=== PATIENT | male | born 1940 | race Caucasian/White ===

== ENCOUNTER 2017-09-26 00:54 | Observation (INO) ==
[2017-09-26] MEDS ORDERED: Naloxone 0.4 MG/ML INJ IVP PRN (05:05)
[2017-09-26] MEDS ORDERED: *HR* LORazepam 2 MG/ML VIAL IVP PRN ×3 (05:12)
--- NOTE | 2017-09-26 05:18 | Internal Med History&Physical ---
<Chalo Lee - Last Filed: 09/26/17 05:34> Date of Encounter: 09/26/17 Time of Encounter: 04:30 Assessment and Plan (1) Syncope Current visit: Yes Status: Acute Syncope, likely related to alcohol consumption vs. Orthostatics vs. 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 There are no focal neurological deficits with the exception of left lower extremity weakness Probability of new infarct in the brain is low, however we will check an MRI We will check orthostatic vital signs, a TTE, continuous cardiac monitoring, NIHSS Protocol We will manage HTN, ASCVD risk factors (currently 38.8% 10yr risk) PT, OT, ST eval Qualifiers: Syncope type: unspecified Qualified Code(s): R55 - Syncope and collapse (2) Hypertension Current visit: Yes Status: Acute Hypertension by history, 152/84 on presentation Patient does mention lightheadedness transitioning from sitting to standing We will control BP as a possible contributor to neurological symptoms Continue home meds, PRN hydralazine for SBP >160 Qualifiers: Hypertension type: essential hypertension Qualified Code(s): I10 - Essential (primary) hypertension (3) Alcohol dependence Current visit: Yes Status: Acute ETOH Dependence, not in withdrawal Patient states he has 3-4 drinks of whiskey per day We will place the patient on CIWA protocol We will give the patient banana bag, supplement Thiamine/Folic Acid Qualifiers: Substance use status: uncomplicated Qualified Code(s): F10.20 - Alcohol dependence, uncomplicated (4) CKD (chronic kidney disease) stage 3, GFR 30-59 ml/min Current visit: Yes Status: Acute CKD stage three, Serum Cr 1.68 eGFR 39 Evidence of prior CKD from old labs We will hydrate, avoid nephrotoxic agents as possible (5) Dysphagia Current visit: Yes Status: Acute Patient complains of dysphagia seemingly in the esophageal phase We will get a speech therapy consult for swallow eval Patient may require outpatient GI workup for dysphagia Qualifiers: Dysphagia type: esophageal phase Qualified Code(s): R13.10 - Dysphagia, unspecified (6) DVT prophylaxis Current visit: Yes Status: Acute SQ Heparin Internal Medicine - H&P: HPI Chief complaint: Passed out Admitted From: Hospital to Hospital Transfer Plans for Post Hospital Care: Home History of present illness: Mr. Garza is a 76 year old male with history of alcohol dependence, tobacco abuse, high blood pressure, prostate cancer with treatment approximately one year ago who presented to the ED at [facility] due to episode of syncope. Apparently the patient was sitting at his dinner table at approximately 8 PM last night when his walked out of the room. Shortly after that she noticed a thump sound and went back in to find that her had slumped over with his head on the table. She said that at that time she tried to wake him but it took approximately 10-15 minutes to get him to open his eyes and try to communicate. She says initially he was unable to communicate although it appeared that he was trying, however after a couple minutes he was able to talk to her again. She does not seem to remember much of this episode described what he was feeling at that time. He does mention that just prior to the episode he did experience some right-sided arm pain which was abnormal for him. The patient's does mention that he does not seem like she has been so for the past 1 week. She says that he has been very tired all the time, and his appetite has been increasingly poorer. She said she cannot exactly describe what is different about him, but just that he has changed. The patient denies any chest pains, shortness of breath, nausea, vomiting, changes in vision, headache or any focal weakness or deficit. He denies any event like this previously. According to the patient and his , the patient does have some issues with alcohol abuse, saying that he has 3-4 drinks of whiskey per day and has for as long as he can remember. Past Med Surg Social Fam HX - Past Medical History Medical history: diabetes, hyperlipidemia, hypertension Psychiatric history: anxiety, depression - Social History Smoking Status: Former smoker Smokeless Tobacco Status: No Alcohol use: recent Drug use: none - Family History Mother Living Status: Hx Family Cardiac Disorders: No Hx Family Respiratory Disorders: No Hx Family Cancer: Yes (liver) Hx Family GI Disorders: No Hx Family Genitourinary Disorders: No Hx Family Endocrine Disorder: No Hx Family Musculoskeletal Disorders: No Hx Family Neuromuscular Disorders: No Hx Family Neurologic Disorders: No Hx Family HEENT Disorders: No Hx Family Autoimmune Disorders: No Hx Family Reproductive Disorders: No Hx Family Psychosocial Disorders: No Hx Family Medical Disorders: No Internal Medicine - H&P: Meds Fenofibrate 134 mg PO DAILY 08/29/15 [History] Fish Oil + Vitamin D-3 Softgel 1,000 mg PO QID 08/29/15 [History] Folic Acid 400 mcg PO DAILY 08/29/15 [History] LORazepam 1 mg PO HS PRN 08/29/15 [History] Lyrica 150 mg PO Q8HR 08/29/15 [History] Metoprolol 100 mg PO BID 08/29/15 [History] Nexium 24Hr 40 mg PO DAILY 08/29/15 [History] Niacin [Niaspan] 1,000 mg PO HS 08/29/15 [History] Phendimetrazine Tartrate 35 mg PO BID 08/29/15 [History] Sildenafil Citrate [Viagra] 100 mg PO DAILY #10 tablet 08/29/15 [Rx] Tamsulosin [Flomax] 0.4 mg PO DAILY #30 cap.er.24h 08/29/15 [Rx] 3 Allergy/AdvReac Type Severity Reaction Status Date / Time No Known Allergies Allergy Verified 07/19/15 14:29 All Systems PM: A 10-system review of systems was performed and is negative for pertinent findings except as documented above in the HPI. Review of systems: Constitutional: Denies fevers, chills, generalized fatigue. Admits to 25lb weight loss in several months which was intentional Head/Neck: Denies YING, neck stiffness EENT: Denies vision changes/blurriness, rhinorrhea, congestion, sore throat CVS: Denies chest pain, palpitations, ALFONSO, orthopnea, edema, PND Pulm: Denies SOB, cough, sputum, hemoptysis, wheezing GI: Denies abdominal pain, nausea, vomiting, diarrhea, constipation, melena, hematemasis. Admits to Dysphagia and food regurgitation recently. : Denies dysuria, increased frequency, urgency, hematuria Heme: Denies ease of bleeding or bruising MSK: Denies joint pain, limited ROM Skin: Denies rashes, ulcers, color changes Neuro: Denies YING, paresthesias, focal deficits, ataxia - Constitutional Vitals: Temp Pulse Resp BP Pulse Ox 98.3 F 85 16 152/84 93 09/26/17 04:04 09/26/17 04:04 09/26/17 04:04 09/26/17 04:04 09/26/17 04:04 Exam: Gen.: Vitals noted. No acute distress. AAOx3 HEENT: PERRL/EOMI, oropharynx clear, Normocephalic, atraumatic Neck: Supple. No adenopathy. Cardiac: RRR, no murmur, +S1/S2 Pulmonary: CTA bilaterally, no wheezes, rales or rhonchi, equal chest expansion Abdomen: soft, nontender, BS noted, no guarding Back: Nontender throughout. MSK: ROM intact, no joint swelling noted Extremities: no BLE edema, nontender calf, no cyanosis or clubbing Neuro: detailed neuro exam documented below Psych: Appropriate mood and behavior - Expanded Neurological Exam Neurological exam expanded: Absent: expressive aphasia Patient oriented to: Present: person, place, time Speech: Present: fluid speech. Absent: garbled, slurred, stutter Cranial Nerves: EOM's intact PM: Normal, tongue deviation PM: Normal Ataxia: Absent: yes Cerebellar function: finger to nose: Normal, heel to bustamante: Normal Upper motor neuron: Babinski sign: Normal, Arturo neglect: Normal, pronator drift : Normal, sensory extinction: Normal Sensory exam: lower extremity light touch: Normal, upper extremity light touch: Normal Neuro motor strength exam: LUE: 5, RUE: 5, LLE: 4, RLE: 5 Coma Scale Eye Opening: Spontaneous Coma Scale Motor Response: Obeys Commands Coma Scale Verbal Response: Oriented Coma Scale Total: 15 <ColeGustavojosh Choi - Last Filed: 09/26/17 06:18> Date of Encounter: 09/26/17 Internal Medicine - H&P: HPI History of present illness: Mr. Garza is a 76 year old male All Systems PM: A 10-system review of systems was performed and is negative for pertinent findings except as documented above in the HPI. - Constitutional Vitals: Temp Pulse Resp BP Pulse Ox 98.3 F 85 16 152/84 93 09/26/17 04:04 09/26/17 04:04 09/26/17 04:04 09/26/17 04:04 09/26/17 04:04 Internal Med - H&P Results - Labs CBC & Chem 7: 09/26/17 05:30 Labs: Short CBC 09/26/17 Range/Units 05:30 WBC 9.5 (4.3-11.1) K/mcL Hgb 15.7 (12.9-16.9) g/dL Hct 45.8 (37.5-50.1) % Plt Count 222 (140-400) K/mcL Neutrophils # 7.0 (1.6-8.9) K/mcL - Attending Attestation I examined this patient and my medical decision-making was reviewed with the Resident Physician. I agree with the documented findings, disposition and treatment plan as described except to the extent set forth below. Transfer from [facility] for syncope eval called EMS as patient had passed out while sitting in the chair drinking whiskey. He was out for 10-15 mins before regaining consciousness. He has a long standing hx of alcoholism and dranks about 4 glass of whiskey daily for many years now. didn't think he was drunk. Blood alcohol level not elevated EKG reviewed by self with rate 130, PVC, sinus tachy CT head w/o contrast with age indeterminate right thalamic lacunar infarct ROS noted dizziness/off balance/light headed WBC 16 Hb 17.5 Plt 280 K Cr 1.68 Na 137 Mg 1.2 K 4.1 General - AAO x 3 Psych - Appropriate affect/speech. No agitation Eyes - ISELA. Eye lids intact. No scleral icterus Neuro - No gross peripheral or central neuro deficits on inspection Heart - Sinus. RRR. S1 and S2 present. No added HS/murmurs appreciated. No elevated JVD appreciated. Lung - Adequate air entry b/l, No crackles/wheezes appreciated GI - Soft, non-tender. No hepatosplenomegaly/ascites. BS+ - No CVA/suprapubic tenderness or palpable bladder distension Skin - Intact. No rash/petechiae/ecchymosis. Warm extremities ROS 14 point review of systems reviewed as best as possible given presentation. Pertinent positive or negative as per HPI or otherwise reviewed as negative A/P Passed out, syncope Hx of dizziness - orthostats, tele, TTE given hx of alcoholism - MRI brain to r/o posterior CVA - PT/OT Alcoholism - ciwa CKD HTN Hyperglyceridemia
[2017-09-26] MEDS: *HR* Heparin 5,000 UNIT/ML VIAL SQ SCH ×2 (05:33→18:00)
[2017-09-26] MEDS ORDERED: hydrALAZINE 10 MG TABLET PO PRN (05:34)
[2017-09-26 05:49] LABS: Basophils # 0.1 K/mcL (0.0-0.2); Basophils % 0.5 %; Eosinophils # 0.2 K/mcL (0.0-0.6); Eosinophils % 2.3 %; Hematocrit 45.8 % (37.5-50.1); Hemoglobin 15.7 g/dL (12.9-16.9); Immature Granulocytes % 0.8 % (0-4); Lymphocytes # 1.3 K/mcL (0.6-4.6); Lymphocytes % 13.4 %; Mean Corpuscular HGB Conc 34.3 g/dL (31.6-35.5); Mean Corpuscular Hemoglobin 33.9 pg (28.0-33.3); Mean Corpuscular Volume 98.9 fL (83.0-100.0); Mean Platelet Volume 10.4 fL (9.4-12.4); Monocytes # 0.9 K/mcL (0.0-1.3); Monocytes % 9.1 %; Platelet Count 222 K/mcL (140-400); Red Blood Count 4.63 M/mcL (4.19-5.50); Red Cell Distribution Width 13.5 % (11.5-14.5); Segmented Neutrophils % 73.9 %
[2017-09-26 06:13] LABS: Alanine Aminotransferase 13 Units/L (7-52); Albumin 3.4 g/dL (3.5-5.7); Albumin/Globulin Ratio 1.2 (1.1-2.2); Alkaline Phosphatase 42 Units/L (34-104); Aspartate Amino Transferase 24 Units/L (13-39); BUN/Creatinine Ratio 14 (6-26); Bilirubin,Direct 0.2 mg/dL (0.0-0.2); Bilirubin,Indirect 0.5 mg/dL (0.0-1.2); Bilirubin,Total 0.7 mg/dL (0.3-1.0); Blood Urea Nitrogen 18 mg/dL (8-23); Calcium 9.5 mg/dL (8.6-10.3); Carbon Dioxide 18 mEq/L (23-29); Chloride 105 mEq/L (98-107); Globulin 2.8 g/dL (2.4-3.5); Glucose 101 mg/dL (70-105); Osmolality,Calculated 278 (280-300); Potassium 4.4 mEq/L (3.5-5.1); Sodium 133 mEq/L (136-145); Total Protein 6.2 g/dL (6.4-8.9); eGFR For African Americans > 60 (> 60); eGFR For Non-African Americans 53 (> 60)
[2017-09-26 06:14] LABS: Cholesterol 178 mg/dL (< 200)
[2017-09-26] MEDS ORDERED: Magnesium Sulfate 4 GM in D5% in Water 100 ML IVPB ONE (06:18)
[2017-09-26 06:32] LABS: Chol/HDL Ratio 7.1 (0-4.9); HDL Cholesterol 25 mg/dL (40-59); LDL Cholesterol,Calculated 114 mg/dL (0-99); Triglycerides 193 mg/dL (< 150)
[2017-09-26] MEDS: Pregabalin 75 MG CAPSULE PO SCH ×3 (08:39→23:55)
[2017-09-26] MEDS: Aspirin 81 MG TAB.CHEW PO SCH (08:45)
[2017-09-26] MEDS: Metoprolol 100 MG TABLET PO SCH ×2 (08:46→20:37)
[2017-09-26] MEDS: Fenofibrate 54 MG TABLET PO SCH (08:46)
[2017-09-26] MEDS: Folic Acid 1 MG TABLET PO SCH (08:46)
[2017-09-26] MEDS ORDERED: Pantoprazole 40 MG VIAL IVP SCH (09:00)
--- NOTE | 2017-09-26 13:22 | Internal Med Progress Note ---
<Francis Bauman - Last Filed: 09/26/17 13:20> Date of Encounter: 09/26/17 Time of Encounter: 13:20 - Assessment and plan (1) Syncope Current Visit: Yes Status: Acute Assessment and plan: Mr. Garza had an episode where he had right shoulder pain followed by blacking out at home. Found by his who says he was slouched over in his chair for roughly 10 minutes no signs of jerking and shaking loss of bowel or bladder control. He states this is the first time he has never had this prior. Upon awakening he had some initial difficulty with speech that resolved on its own. - MRI of the brain demonstrates an old lacunar with right and left thalamus, mild chronic small vessel ischemic disease with associated mild cerebral atrophy. - Patient has been stable on threat monitoring analyst. - Echocardiogram ordered results pending - EKG no acute findings. Patient had syncopal episode at home, potential for cardiac involvement as the patient was at rest sitting in his chair and blacked out. He does have occasional episodes of lightheadedness when he stands which may be due to orthostatic syncope but this episode he was at rest and denies trying to ambulate from his chair. - He is a chronic alcoholic and does not follow up with his PCP regularly, history of cancer with last therapy treatment 2 years ago. HTN, ASCVD risk factors (currently 38.8% 10yr risk) Plan: - Awaiting read from echocardiogram - Orthostatic blood pressures - Continue cardiac monitoring may need 30 day heart monitor - MRI of the brain without acute findings Qualifiers: Syncope type: unspecified Qualified Code(s): R55 - Syncope and collapse (2) Alcohol dependence Current Visit: Yes Status: Acute Assessment and plan: Mr. Garza has a long chronic history of alcohol abuse potential for cirrhosis. Platelet count 222, AST and ALT are in normal range. -History of withdrawal symptoms requiring hospitalization one year ago - Drinks multiple drinks of hard alcohol per day with last drink of alcohol yesterday prior to admission Liver ultrasound from 2016 demonstrates marked hepatic steatosis superimposed coarsened hepatic echotexture with findings for fibrotic change. Plan: - [facility] protocol - Continue to monitor symptoms per protocol - Continue thiamine folic acid replacement Qualifiers: Substance use status: uncomplicated Qualified Code(s): F10.20 - Alcohol dependence, uncomplicated (3) CKD (chronic kidney disease) stage 3, GFR 30-59 ml/min Current Visit: Yes Status: Acute Assessment and plan: History of chronic kidney disease review of his current labs demonstrates appropriate creatinine and GFR: Chronic kidney disease stage III - Avoid nephrotoxic medications and renally dose antibiotics (4) DVT prophylaxis Current Visit: Yes Status: Acute Assessment and plan: Subcutaneous heparin - Subjective Interval history: Mr. Garza has been seen and evaluated patient bedside. He is alert awake [place] appropriate no concerns. He states that he feels almost back to his normal self distal little tired otherwise he is starving. He has no acute concerns, denies any weakness numbness tingling travel with vision or speech. His was at bedside states that he has just seemed a little bit off over the last week which concerned him but when she found him slouched over in his chair that was very concerning and he was out for roughly 10 minutes. He denies any heart issues, denies any heart attacks MIs stents arrhythmias or palpitations. He denies any lightheaded episodes resulting in passing out prior. He does mention that occasionally when he gets up from his chair he becomes lightheaded but that usually resolves on its own. He does mention that for a while he has had progressive dysphagia where he has difficulty swallowing foods completely feeling like they are stuck and then having to drink water to try to get that to pass. He states that occasionally he will throw up water that he drinks to try to get the food down. - Constitutional Vitals: Temp Pulse Resp BP Pulse Ox 98.2 F 85 16 113/83 92 09/26/17 07:14 09/26/17 07:14 09/26/17 07:14 09/26/17 07:14 09/26/17 08:47 - Head Head exam: Present: atraumatic, normocephalic - Eye Eye exam: Present: PERRL, conjuntiva pink, sclera anicteric Pupils: Present: PERRL - Neck Neck exam general surgery: Present: supple, trachea midline. Absent: lymphadenopathy - Respiratory Respiratory exam: Present: CTAB. Absent: accessory muscle use, rales, rhonchi, wheezes - Cardiovascular Cardiovascular exam: Present: RRR, +S1, +S2. Absent: diastolic murmur, gallop, rubs, systolic murmur - GI/Abdominal GI/Abdominal exam: Present: hepatomegaly, normal bowel sounds, soft, no peritoneal signs. Absent: distended, tenderness - Extremities Exam Extremities exam: Present: warm, radial pulses palpable and symmetrical. Absent : calf tenderness, cyanotic, pedal edema - Neurological Exam Neurological exam: Present: alert, CN II-XII intact, oriented X3, no focal deficits. Absent: pronater drift, facial droop, speech deficit - Skin Skin exam: Present: dry, intact Internal Medicine: Result - Labs CBC & Chem 7: 09/26/17 05:30 09/26/17 05:30 Labs: Short CBC 09/26/17 Range/Units 05:30 WBC 9.5 (4.3-11.1) K/mcL Hgb 15.7 (12.9-16.9) g/dL Hct 45.8 (37.5-50.1) % Plt Count 222 (140-400) K/mcL Neutrophils # 7.0 (1.6-8.9) K/mcL BMP 09/26/17 05:30 Sodium 133 L Potassium 4.4 Chloride 105 Carbon Dioxide 18 L BUN 18 Creatinine 1.31 H Glucose 101 Calcium 9.5 Liver Function 09/26/17 Range/Units 05:30 Total Bilirubin 0.7 (0.3-1.0) mg/dL Direct Bilirubin 0.2 (0.0-0.2) mg/dL AST 24 (13-39) Units/L ALT 13 (7-52) Units/L Alkaline Phosphatase 42 (34-104) Units/L Albumin 3.4 L (3.5-5.7) g/dL - Impressions Impressions Brain MRI 09/26/17 05:08 IMPRESSION: No evidence of acute ischemia Old lacune within the right and left thalamus Mild chronic small vessel ischemic disease with associated mild cerebral atrophy D/ / Guille Carranza MD / Guille Carranza MD Interpreting Provider: Guille Carranza MD Consult Discharge Plan - Plan Referrals: Alexis Hsu DO [Primary Care Provider] - <Matt Packer - Last Filed: 09/26/17 18:49> Date of Encounter: 09/26/17 - Constitutional Vitals: Temp Pulse Resp BP Pulse Ox 97.8 F 93 16 143/86 95 09/26/17 15:43 09/26/17 15:43 09/26/17 15:43 09/26/17 15:46 09/26/17 15:43 Internal Medicine: Result - Labs CBC & Chem 7: 09/26/17 05:30 09/26/17 05:30 Labs: Short CBC 09/26/17 Range/Units 05:30 WBC 9.5 (4.3-11.1) K/mcL Hgb 15.7 (12.9-16.9) g/dL Hct 45.8 (37.5-50.1) % Plt Count 222 (140-400) K/mcL Neutrophils # 7.0 (1.6-8.9) K/mcL BMP 09/26/17 05:30 Sodium 133 L Potassium 4.4 Chloride 105 Carbon Dioxide 18 L BUN 18 Creatinine 1.31 H Glucose 101 Calcium 9.5 Liver Function 09/26/17 Range/Units 05:30 Total Bilirubin 0.7 (0.3-1.0) mg/dL Direct Bilirubin 0.2 (0.0-0.2) mg/dL AST 24 (13-39) Units/L ALT 13 (7-52) Units/L Alkaline Phosphatase 42 (34-104) Units/L Albumin 3.4 L (3.5-5.7) g/dL - Impressions Impressions Brain MRI 09/26/17 05:08 IMPRESSION: No evidence of acute ischemia. Old lacune within the right and left thalamus. Mild chronic small vessel ischemic disease with associated mild cerebral atrophy. D/ : / 09/26/2017 13:23:53 Guille Carranza MD / [email or web address] Interpreting Provider: Guille Carranza MD - Attending Attestation I examined this patient and my medical decision-making was reviewed with the Resident Physician on 09/26/17. I agree with the documented findings, disposition and treatment plan as described except to the extent set forth below. Mr Garza was admitted earlier today for syncopal episode Agree with assessment and plan as above Echo pending.
[2017-09-26] MEDS ORDERED: Thiamine (B-1) 100 MG, Folic Acid 1 MG, MVI, adult with vitamin K 10 ML in 0.9 % Sodi... IVPB SCH (18:00)
[2017-09-26] MEDS: Sucralfate 1 GM TABLET PO SCH ×2 (18:00→21:25)
[2017-09-27 05:34] LABS: Basophils % 0.6 %; Eosinophils # 0.2 K/mcL (0.0-0.6); Eosinophils % 3.1 %; Hematocrit 43.4 % (37.5-50.1); Hemoglobin 14.5 g/dL (12.9-16.9); Immature Granulocytes % 0.7 % (0-4); Lymphocytes # 1.1 K/mcL (0.6-4.6); Lymphocytes % 15.5 %; Mean Corpuscular HGB Conc 33.4 g/dL (31.6-35.5); Mean Corpuscular Hemoglobin 33.6 pg (28.0-33.3); Mean Corpuscular Volume 100.5 fL (83.0-100.0); Mean Platelet Volume 10.7 fL (9.4-12.4); Monocytes # 0.7 K/mcL (0.0-1.3); Monocytes % 10.4 %; Neutrophils # 4.9 K/mcL (1.6-8.9); Platelet Count 200 K/mcL (140-400); Red Blood Count 4.32 M/mcL (4.19-5.50); Red Cell Distribution Width 13.5 % (11.5-14.5); Segmented Neutrophils % 69.7 %
[2017-09-27] MEDS: *HR* Heparin 5,000 UNIT/ML VIAL SQ SCH (05:51)
[2017-09-27 05:55] LABS: Alanine Aminotransferase 14 Units/L (7-52); Albumin 3.3 g/dL (3.5-5.7); Albumin/Globulin Ratio 1.3 (1.1-2.2); Alkaline Phosphatase 42 Units/L (34-104); Aspartate Amino Transferase 14 Units/L (13-39); BUN/Creatinine Ratio 12 (6-26); Bilirubin,Total 0.5 mg/dL (0.3-1.0); Blood Urea Nitrogen 15 mg/dL (8-23); Calcium 9.1 mg/dL (8.6-10.3); Carbon Dioxide 25 mEq/L (23-29); Chloride 105 mEq/L (98-107); Globulin 2.5 g/dL (2.4-3.5); Glucose 105 mg/dL (70-105); Osmolality,Calculated 281 (280-300); Potassium 3.8 mEq/L (3.5-5.1); Sodium 135 mEq/L (136-145); Total Protein 5.8 g/dL (6.4-8.9); eGFR For African Americans > 60 (> 60); eGFR For Non-African Americans 56 (> 60)
[2017-09-27 07:26] VITALS: BP 121/82
[2017-09-27] MEDS: Sucralfate 1 GM TABLET PO SCH (08:00)
[2017-09-27] MEDS: Aspirin 81 MG TAB.CHEW PO SCH (08:00)
[2017-09-27] MEDS: Folic Acid 1 MG TABLET PO SCH (08:00)
[2017-09-27] MEDS: Fenofibrate 54 MG TABLET PO SCH (08:00)
[2017-09-27] MEDS: Metoprolol 100 MG TABLET PO SCH (08:00)
[2017-09-27] MEDS: Pregabalin 75 MG CAPSULE PO SCH (08:00)
--- NOTE | 2017-09-27 08:34 | Discharge Summary ---
<Francis Bauman Aaron - Last Filed: 09/27/17 10:12> Date of Encounter: 09/27/17 Time of Encounter: 08:34 - Discharge Diagnosis (1) Syncope Priority: Primary Status: Acute Qualifiers: Syncope type: unspecified Qualified Code(s): R55 - Syncope and collapse (2) Alcohol dependence Priority: Primary Status: Acute Qualifiers: Substance use status: uncomplicated Qualified Code(s): F10.20 - Alcohol dependence, uncomplicated (3) CKD (chronic kidney disease) stage 3, GFR 30-59 ml/min Priority: Secondary Status: Acute (4) DVT prophylaxis Priority: Secondary Status: Acute - Discharge Medications Prescriptions: Omeprazole [PriLOSEC] 40 mg PO DAILY@0630 30 Days #60 capsule. Sucralfate [Carafate] 1 gm PO QIDAC 30 Days #120 tablet Home Medications: Fenofibrate 134 mg PO DAILY 08/29/15 [History] Fish Oil + Vitamin D-3 Softgel 1,000 mg PO QID 08/29/15 [History] Folic Acid 400 mcg PO DAILY 08/29/15 [History] LORazepam 1 mg PO HS PRN 08/29/15 [History] Lyrica 150 mg PO Q8HR 08/29/15 [History] Metoprolol 100 mg PO BID 08/29/15 [History] Nexium 24Hr 40 mg PO DAILY 08/29/15 [History] Niacin [Niaspan] 1,000 mg PO HS 08/29/15 [History] Phendimetrazine Tartrate 35 mg PO BID 08/29/15 [History] Sildenafil Citrate [Viagra] 100 mg PO DAILY #10 tablet 08/29/15 [Rx] Tamsulosin [Flomax] 0.4 mg PO DAILY #30 cap.er.24h 08/29/15 [Rx] Omeprazole [PriLOSEC] 40 mg PO DAILY@0630 30 Days #60 capsule. 09/27/17 [Rx] Sucralfate [Carafate] 1 gm PO QIDAC 30 Days #120 tablet 09/27/17 [Rx] Allergies/Adverse Reactions: 3 Allergy/AdvReac Type Severity Reaction Status Date / Time No Known Allergies Allergy Verified 07/19/15 14:29 Procedures/tests Complete & Pending: Procedures Performed prior 72 hours Category Date Time Status MR head/brain wo con [MR] Routine MRI 09/26/17 05:08 Completed EV echocardiogram Routine Y 09/26/17 05:09 Completed Date of admission: 09/26/17 02:49 Primary care physician: Alexis Hsu Consults: 09/26/17 05:07 Consult to Occupational Therapy [CONS] Routine Comment: Evaluate, develop and implement POC Reason for Consult: syncope, falls Consult to Physical Therapy [CONS] Routine Comment: Evaluate, develop and implement POC Reason for Consult: syncope, falls Consult to Speech Therapy [CONS] Routine Comment: Evaluate, develop and implement POC Reason for Consult: dysphagia Call Completed: No Discharging clinician: Francis Bauman Anticipated date of discharge: 09/27/17 - Patient Status Disposition: Home, Self-Care Condition: Good Functional capacity at discharge: independent ambulation Overall status at discharge: patient is progressing back to baseline - Discharge Instructions Instructions: Syncope (DC) Follow Up With: Alexis Hsu DO [Primary Care Provider] - Krishna Boudreaux MD [Partnered Physician] - (Appointment web requested. Office will contact patient at home to schedule appointment. ) Additional Instructions: Follow up with Gastroenterology Follow up with your PCP Take medications as prescribed Attend AA for alcohol abuse If you have recurrence of dizziness or near syncope episodes return to the emergency department for further evaluation - Diet and Activity Activity: increase activity as tolerated Diet: advance to your usual diet Interval History: Mr. Garza 77yo Male with significant PMH of EtOH abuse, cirrhosis, CHF and prostate cancer admitted with syncope at home. He was admitted to the general medical floor and placed on Telemetry. 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 Orthostatic BP were negative and he did not have any cardiac events or arrhythmias on Telemetry. He was placed on CIWA protocol inpatient without needs for intervention. During his inpatient stay he did complain of prolonged dysphagia at home that occasionally resulted in vomiting. He was started on PPI and carafate inpatient with some improvement in his symptoms. He was highly encouraged to follow up [facility] after discharge. He agreed with this plan. It is suspected alcohol may have contributed to his symptoms prior to admission. He remained stable throughout his inpatient stay. on 09/27/2017 Echocardiogram was reviewed without abnormal findings and EF 60-65%. Patient seen and evaluated and deemed stable for discharge home and close follow up with his PCP and Gastroenterology. Hospital course: Mr. Garza is a 77 year old male - Time Spent with Patient Total time spent providing and/or coordinating discharge services: - Constitutional Vitals: Temp Pulse Resp BP Pulse Ox 97.6 F 63 16 121/82 97 09/27/17 07:25 09/27/17 07:25 09/27/17 07:25 09/27/17 07:25 09/27/17 08:06 - Head Head exam: Present: atraumatic, normocephalic - Eye Eye exam: Present: PERRL, conjuntiva pink, sclera anicteric Pupils: Present: PERRL - Neck Neck exam general surgery: Present: supple, trachea midline. Absent: lymphadenopathy - Respiratory Respiratory exam: Present: CTAB. Absent: accessory muscle use, rales, rhonchi, wheezes - Cardiovascular Cardiovascular exam: Present: RRR, +S1, +S2. Absent: diastolic murmur, gallop, rubs, systolic murmur - GI/Abdominal GI/Abdominal exam: Present: normal bowel sounds, soft, no peritoneal signs. Absent: distended, tenderness - Extremities Exam Extremities exam: Present: warm, radial pulses palpable and symmetrical. Absent : calf tenderness, cyanotic, pedal edema - Neurological Exam Neurological exam: Present: CN II-XII intact, oriented X3, no focal deficits. Absent: pronater drift, facial droop, speech deficit - Skin Skin exam: Present: dry, intact <Matt Packer - Last Filed: 09/27/17 17:26> Date of Encounter: 09/27/17 - Discharge Diagnosis (1) Alcohol dependence Status: Chronic Qualifiers: Substance use status: uncomplicated Qualified Code(s): F10.20 - Alcohol dependence, uncomplicated (2) Syncope Status: Resolved Qualifiers: Syncope type: unspecified Qualified Code(s): R55 - Syncope and collapse (3) CKD (chronic kidney disease) stage 3, GFR 30-59 ml/min Status: Chronic (4) Dysphagia Priority: Secondary Status: Chronic Comments: To have outpatient GI follow up Qualifiers: Dysphagia type: esophageal phase Qualified Code(s): R13.10 - Dysphagia, unspecified (5) Hypertension Priority: Secondary Status: Chronic Qualifiers: Hypertension type: essential hypertension Qualified Code(s): I10 - Essential (primary) hypertension (6) Adenocarcinoma of prostate Priority: Secondary Status: Chronic Procedures/tests Complete & Pending: Procedures Performed prior 72 hours Category Date Time Status MR head/brain wo con [MR] Routine MRI 09/26/17 05:08 Completed EV echocardiogram Routine Y 09/26/17 05:09 Completed Date of admission: 09/26/17 02:49 Primary care physician: Alexis Hsu Consults: 09/26/17 05:07 Consult to Occupational Therapy [CONS] Routine Comment: Evaluate, develop and implement POC Reason for Consult: syncope, falls Consult to Physical Therapy [CONS] Routine Comment: Evaluate, develop and implement POC Reason for Consult: syncope, falls Consult to Speech Therapy [CONS] Routine Comment: Evaluate, develop and implement POC Reason for Consult: dysphagia Call Completed: No Hospital course: Mr. Garza is a 77 year old male - Time Spent with Patient Total time spent providing and/or coordinating discharge services: - Constitutional Vitals: Temp Pulse Resp BP Pulse Ox 97.6 F 63 16 121/82 97 09/27/17 07:25 09/27/17 07:25 09/27/17 07:25 09/27/17 07:25 09/27/17 08:06 - Attending Attestation I examined this patient and my medical decision-making was reviewed with the Resident Physician on 09/27/17. I agree with the documented findings, disposition and treatment plan as described except to the extent set forth below. Mr Garza has been in observation following syncopal episode. He is now at baseline and has had no further episodes. He is ready for discharge home at this time. Exam Alert Comfortable Mucus membranes dry Heart reg No wheeze Plan D/C home today with outpatient follow up.
== END 2017-09-27 11:52 | disposition home or self-care (01) ==
LOC: 3BNU → SUATTDRO 02:49
PROVIDERS: ADMIT Family Medicine; ATTEND Internal Medicine